=== PATIENT | female | born 1935 | race Caucasian/White ===

== ENCOUNTER 2016-12-01 09:30 | Inpatient (IN) | payer MEDICARE, BC, MEDICAID ==
[~2016-12-01] VITALS: Ht 165.1 cm; Wt 75.7 kg
--- NOTE | ~2016-12-01 | HP ---
ADMIT: 12/01/2016 RM/LOC: [facility] MR#: [id number] [address] [address] [place] [address] Pre-OP History and Physical SEX: F AGE: 81 : 1935 Corrected: 12/01/2016 1318 kamilah DATE OF SERVICE: HISTORY OF PRESENT ILLNESS: Ms. Eng had weeks of visible hardware at the insertion site of her deep brain stimulators as well as the saying that he thinks the batteries are as well. She has not been shaking. She saw Dr. Womack on Thursday and I discussed the case with him. We planned for possible explantation today if he was not able to do it in [employer] over the weekend. The patient is in halfway and is minimally cognizant of what is going on. The history and physical was taken from the chart and from the and daughter. I had seen the patient previously for internal pulse generator exchanges. PAST MEDICAL HISTORY: Parkinson disease, urinary incontinence, subcorneal , salivary secretion issue, shortness of breath, constipation, GERD, dementia, major depression, cervicalgia, stress incontinence, hyperlipidemia, hypothyroidism, adult failure to thrive, psoriasis, and prior urinary tract infections. The patient is a DNR/DNI. MEDICATIONS: Medication reconciliation was sent over, she is not on any anticoagulants. She does not appear to be on medications that would be contraindicated prior to removal of this infected hardware. SOCIAL HISTORY: Lives in a halfway. FAMILY HISTORY: None pertinent. REVIEW OF SYSTEMS: Unobtainable. PHYSICAL EXAM: VITAL SIGNS: Reviewed in Short Stay Surgery in the room with the patient. She is an otherwise unhealthy, older than her stated age appearing woman with erythema. It is a little bit difficult to tell exactly what we are looking at the top of her skull. I was told by Dr. Womack it looked like maybe some wires were coming out, but actually it looks like maybe the set caps have dislodged. The entire area looks mildly purulent and chronically infected. She has internal pulse generators on each side, left and right. She does move her hands on command. She does not speak, keeps her eyes closed. She is somnolent the entire time. She has some volitional movement. She has contractures in her legs and feet. A gastrostomy tube is present. 2+ pulses. Soft respiratory excursions. ASSESSMENT AND PLAN: Ms. Eng is a very pleasant woman with what appears to be eroded through infected hardware in a long-standing deep brain stimulator. This will need to be explanted, probably both systems. After discussing with Dr. Womack, it sounded like may be we could save the right ADMIT: 12/01/2016 RM/LOC: [facility] MR#: [id number] [address] [place] [id number] [place] [address] Pre-OP History and Physical SEX: F AGE: 81 : 1935 system, but I no longer think that is possible. At this point, we will explant both systems. I have discussed the risks, benefits, and alternatives with her family with risks including but not limited to [place], DVT, PE, pneumonia, , loss of bowel, bladder, sexual function, CSF leak, brain abscess, damage to the brain, retained pieces, worsening Parkinson disease as well as others. They stipulate that she has a DNR and would not want resuscitation should her heart stop, although it would be okay for intubation in a compassionate manner during surgery for comfort. We will obtain CT scan and some x-rays as well as some laboratory analysis and bring her back to the OR when ready. We will plan for cultures and Infectious Disease consult. Ravi Powell MD/ yoni JOB #: [id number] CC: Ravi Powell, Attending Physician Sharita Lemon, Family Physician Corrected: 12/01/2016 1318 kamilah
--- NOTE | ~2016-12-01 | DS ---
ADMIT: 12/01/2016 RM/LOC: [address] [facility] MR#: [id number] 26[address] [facility] [address] [place], [place] [address] [place] [address] General Discharge Summary SEX: F AGE: 81 : 1935 CORRECTED: 01/06/2017 0641 DJ ADMISSION DATE: 12/01/2016 DISCHARGE DATE: 12/04/2016 SERVICE: Neurosurgery. REASON FOR ADMISSION: Eroded through infected DBS hardware. CONSULTS: Marietta Conteh MD with Infectious Disease. PROCEDURE: Removal of deep brain stimulator system and bilateral internal pulse generators. HOSPITAL COURSE: Ms. Eng is a very pleasant, 81-year-old female, who was in to see Dr. Womack in [place] on Thursday with exposed DBS hardware. The plan was to do explantation of hardware on the day of admission if Dr. Womack was not able to do it over the weekend. She was taken to the OR, and her deep brain stimulator system was removed bilaterally. The incision to her head was approximated as much as possible, and a wound VAC was placed. She tolerated the procedure very well. Postoperatively, she was taken to the Med/Surg floor for monitoring and care. Postop day #1, she would awaken and open her eyes. She was nonverbal. She was afebrile, and her vital signs were stable, she was contractured in her arms, hands, legs, and feet. Her bilateral chest incisions were clean, dry, and intact. Her head incision was erythematous, and her wound VAC was intact. Dr. Conteh was consulted for assistance with antibiotics. Her tube feedings were resumed. Postop day #2, she would open her eyes, she was afebrile, her vital signs were stable. The incisions to her bilateral chest remained clean, dry, and intact. Her wound VAC to her head was patent. Her face was a little red today. Her wound cultures came back with Staph aureus with sensitivity pending. Postop day #3, she was awake and alert. She was nonverbal. She was afebrile, and her vital signs were stable. Her extremities remained contracture. The wound VAC to her head was intact with decreased erythema to her scalp. Her bilateral chest incisions were clean, dry, and intact. Her urine culture was positive for Proteus mirabilis. She was stable and deemed safe and appropriate for transfer back to [facility]. DISCHARGE CONDITION: Good. MEDICATIONS: 1. Carbidopa 25/100, 2 tabs t.i.d. 2. Loratadine 10 mg syrup daily. 3. Fentanyl patch 50 mcg, change every 72 hours. 4. Potassium 20 mEq daily. 5. Prilosec 40 mg daily. 6. Requip 1 mg t.i.d. 7. Synthroid 75 mcg daily. 8. UTI stat liquid 30 mg b.i.d. ADMIT: 12/01/2016 RM/LOC: [address] [facility] MR#: [id number] [facility] [address] [address] [place] [address] General Discharge Summary SEX: F AGE: 81 : 1935 9. Morphine sulfate 10 mg/5 mL, give 1 mL q.4 hours p.r.n. 10.Morphine sulfate 10 mg/5 mL, give 2 mL q.4 hours p.r.n. 11.Nasal spray solution 2 sprays q.1 hour p.r.n. 12.[place] 10/325, 1 p.o. q.4 hours p.r.n. 13.Nystatin powder b.i.d. p.r.n. 14.Oxybutynin chloride syrup 5 mL t.i.d. 15.Albuterol sulfate neb solution q.4 hours p.r.n. 16.Atropine sulfate 2 drops q.4 hours p.r.n. 17.Dulcolax suppository 1 suppository daily p.r.n. 18.Sinemet tab 25/100, 1.5 tabs t.i.d. 19.Skin cleanser liquid daily p.r.n. 20.Tylenol 325 mg q.6 hours p.r.n. 21.Milk of magnesia 30 mL daily p.r.n. 22.Ceftriaxone IV 2 g every 12 hours until 12/11. 23.Oxacillin IV continuous 12 g a day, start 12/12/2016 until 12/28/2016. DISCHARGE INSTRUCTIONS: Per Dr. Powell, she can have a diet per nutrition tube feeding recommendations. She may shower, she should not take any tub baths, she should not get her head dressing wet. She will follow up with wound care with the wound VAC. She is to have an appointment made with Dr. Mervin Matson in [place] for her scalp wound, he is a plastic surgeon. She is to continue being a DNR/DNI. She will call with any questions or concerns including neurological worsening, signs or symptoms of infection, or any other issues. FOLLOWUP: She will follow up in clinic with Dr. Powell in 2 weeks. Total [id number] time for the discharge planning and care coordination was 30 minutes. Ying Whitmore APRN / Ravi Powell MD / yoni JOB #: [id number] CC: Ravi Powell MD, Attending Physician Sharita Lemon, Family Physician CORRECTED: 01/06/2017 0641 [place]
--- NOTE | 2016-12-03 11:52 | CO ---
ADMIT: 12/01/2016 RM/LOC: 530 [facility] MR#: [id number] [address] [facility] [address] [place] [id number] [place] [address] Consultation SEX: F AGE: 81 : 1935 DATE OF CONSULTATION: 12/02/2016 ATTENDING PHYSICIAN: Ravi Powell CONSULTING PHYSICIAN: Marietta Conteh MD REASON FOR CONSULT: Antibiotic management. Thank you, Dr. Powell, for the consult and involving me in this patient's care. HISTORY OF PRESENT ILLNESS: Ms. Eng is an 81-year-old woman with history of Parkinson's disease, who has had deep brain stimulator placed in the past. She had weeks of visible hardware at the incision site with some purulent drainage. She had seen Dr. Womack and the plan was for explantation. Hence, she was admitted yesterday and underwent explantation of individual deep brain stimulator electrodes as well as internal pulse generator site on both sides. There was significant amount of purulent drainage noted in the OR. Cultures are growing polymicrobial malgorzata and identification is pending at this time. The patient is nonverbal and it is unable to obtain any history from her. PAST MEDICAL HISTORY: 1. Parkinson's disease. 2. Urinary incontinence. 3. Constipation. 4. GERD. 5. Dementia. 6. Major depression. 7. Stress incontinence. 8. Cervicalgia. 9. Hyperlipidemia. 10.Hypothyroidism. 11.Failure to thrive. 12.Psoriasis. 13.History of UTI. SOCIAL HISTORY: She lives in a prison. FAMILY HISTORY: Unable to obtain as patient is nonverbal. REVIEW OF SYSTEMS: Unable to obtain as patient is nonverbal. ALLERGIES: NO KNOWN DRUG ALLERGIES. CURRENT MEDICATIONS: 1. Claritin. 2. Colace. 3. Milk of magnesia. 4. Protonix. ADMIT: 12/01/2016 RM/LOC: 530 [facility] MR#: [id number] [address] [facility] [address] [place], [place] [address] [place] [address] Consultation SEX: F AGE: 81 : 1935 5. Requip. 6. Senokot. 7. Sinemet. 8. Synthroid. 9. Maxipime 2 g every 12 hours. 10.Vancomycin 1 g every 12 hours. PHYSICAL EXAMINATION: VITAL SIGNS: Current temperature 98.2, heart rate 93, respirations 20, blood pressure 114/51, 92% on room air. GENERAL: No acute distress. HEENT: There is a wound VAC present on her scalp and mild surrounding erythema noted. LYMPH: No palpable anterior/posterior cervical or supraclavicular lymphadenopathy. CHEST: Decreased breath sounds bilaterally. No wheezes, rales, or rhonchi. CARDIOVASCULAR: S1 and S2 heard. Regular rate and rhythm. ABDOMEN: Soft, nontender. MUSCULOSKELETAL: There are contractures present in her foot. NEURO: Nonverbal, non-responding to verbal commands. LABORATORY DATA: Reviewed, per HPI. A CBC today shows white count of 11.5, and platelets of 209. Urinalysis showed 108 wbc's, and culture is pending. ASSESSMENT AND PLAN: 1. 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 The culture is growing multiple organisms at this time. Continue IV vancomycin and I will stop the cefepime. I will start her on Zosyn 3.375 g every 8 hours to cover for anaerobes as well given the culture results. We will narrow antibiotics after cultures are finalized. We will also check blood cultures and add on urine culture. 2. Urinary tract infection. Continue antibiotics. 3. Parkinson's disease. 4. Depression. 5. Urinary incontinence. Thank you for the consult and I will continue to follow the patient. Marietta Conteh MD/ yoni JOB #: [id number] CC: Ravi Powell, Attending Physician Sharita Lemon, Family Physician
--- NOTE | 2016-12-03 14:22 | OR ---
ADMIT: 12/01/2016 RM/LOC: 530 [facility] MR#: [id number] [address] [address] [place] [facility] [place] [address] Operative/Delivery Room Report SEX: F AGE: 81 : 1935 SURGERY DATE: 12/01/2016 SURGEON: Ravi Powell MD BULL FLOAT FINISHER: Ying Whitmore APRN. PREOPERATIVE DIAGNOSIS: Large erythematous and inflamed area at the vertex of the scalp involving bilateral deep brain stimulator insertion site with erosion of tissue and wires sticking out with purulent appearance. POSTOPERATIVE DIAGNOSIS: Large erythematous and inflamed area at the vertex of the scalp involving bilateral deep brain stimulator insertion site with erosion of tissue and wires sticking out with purulent appearance. PROCEDURES: 1. Explantation of 2 separate and individual deep brain stimulator electrodes and internal pulse generators, one complete system on the left, one complete system on the right. 2. Complex closure of T-incision 9 cm x 8 cm with eroded portion over top of the prior wenceslao hole craniotomy with 2 cm x 3 cm remaining defect. DESCRIPTION OF PROCEDURE: After gaining informed consent from her and daughter, she was taken to the operative theater and placed under general anesthesia. Time-out was utilized to ascertain the correct site and side of surgery as well as other pertinent patient historical information. Counts were obtained in the beginning and end of the case with no change betwixt the two. Antibiotics were given within 1 hour of incision. Utilizing separate instrument setup, sterilely the incisions were opened over top of the internal pulse generator, and these were freed up and removed from the pocket. The attention was then turned to the infected component and incision over top of the left side was opened with question whether the right side was going to be involved. It is clearly evident from the beginning that the wired areas around were both involved, and at this time, this was converted to a T-shaped incision as her scalp was taut and had no laxity. I evaluated this for possible Z-plasty, but with the situation at the site of the defect, it was clear that there was not going to be much option other than vacuum-assisted closure at the center portion with plastics evaluation at a later date. At this point, the T-incision was fashioned utilizing the drill very cautiously as well as other instruments, the pieces of the plastic retainer were removed, and the deep brain electrodes were removed from within the brain itself. These wenceslao holes were nearly completely re-ossified save for the very tiny area around the electrode. This area was waxed in with bone wax. The skull did not appear to be unhealthy or clearly infected, although the presumption would be that there is an osteomyelitic component of this. Once both of these were explanted, the lead was cut and then the extension wire was pulled down through the pockets in the chest, and the leads were removed from the field with the internal pulse generators. Just prior to doing this, swabs were obtained for culture and sensitivity. At this point, ADMIT: 12/01/2016 RM/LOC: 530 [facility] MR#: [id number] [address] [place] [id number] [place] [address] Operative/Delivery Room Report SEX: F AGE: 81 : 1935 everything had been explanted and attention was turned to closure. The coronal incision was 9 cm in length. The sagittal incision was 8 cm. I attempted to align these in a way and to undermine some of the galea off the skull to allow attempted closure, but even despite freeing up the significant amount, it was clear that this wound was not going to reapproximate primarily. At this point, horizontal mattress 3-0 nylon were used in the edges of the Ts as well as bring together what I could from the central portion after trimming back some of the disease and necrotic-appearing tissue. This left the 9 cm x 8 cm incisions reasonably well closed with the exception of the 2 cm x 3 cm area without tissue. The incisions in the chest were closed with simple inverted interrupted 2-0 Vicryl and simple running 3-0 nylon. Ms. Whitmore assisted with suction, retraction, and closure at the end of the case. COMPLICATIONS: None. ESTIMATED BLOOD LOSS: Charted. SPECIMEN: IPG. Ravi Powell MD/ yoni JOB #: [id number] CC: Ravi Powell, Attending Physician Sharita Lemon, Family Physician
[2016-12-05] MEDS ORDERED: CARBIDOPA-LEVO1 EAC1 GT (13:34)
[2016-12-05] MEDS ORDERED: LORATADINE5 MG/5 M1 GT (13:35)
[2016-12-05] MEDS ORDERED: DURAGESIC DPS100 MCG TD (13:36)
[2016-12-05] MEDS ORDERED: POTASSIUM20 MEQ/15 GT (13:37)
[2016-12-05] MEDS ORDERED: SYNTHROID75 MCG GT (13:37)
[2016-12-05] MEDS ORDERED: REQUIP1 MG GT (13:37)
[2016-12-05] MEDS ORDERED: PRILOSEC DPS20 MG GT (13:37)
[2016-12-05] MEDS ORDERED: UTI-STAT L3875 MG/30 GT (13:38)
[2016-12-05] MEDS ORDERED: MORPHINE GT (13:39)
[2016-12-05] MEDS ORDERED: AFRIN15 M1 NS (13:40)
[2016-12-05] MEDS ORDERED: NORCO 10-325 T1 EACH GT (13:42)
[2016-12-05] MEDS ORDERED: OXYBUTYNIN5 MG/5 ML GT (13:45)
[2016-12-05] MEDS ORDERED: NYSTATIN1 EAC3 TP (13:45)
[2016-12-05] MEDS ORDERED: PROVENTIL2.5 MG/3 M IH (13:46)
[2016-12-05] MEDS ORDERED: ISOPTO ATROPINE15 ML SL (13:47)
[2016-12-05] MEDS ORDERED: DULCOLAX-DPS10 MG PR (15:05)
[2016-12-05] MEDS ORDERED: SINEMET 25/1001 TAB GT (15:05)
[2016-12-05] MEDS ORDERED: [UNRECOGNIZED DRUG - OTHER] TP (15:06)
[2016-12-05] MEDS ORDERED: MILK OF MAGNESI10 ML GT (15:06)
[2016-12-05] MEDS ORDERED: TYLENOL DPS325 MG GT (15:06)
[2016-12-05] MEDS ORDERED: TYLENOL-DP325 MG/10. GT (15:10)
[2016-12-05] MEDS ORDERED: COLACE-DPS100 MG GT (15:12)
[2016-12-05] MEDS ORDERED: DITROPAN SY5 MG/5 ML GT (15:14)
[2016-12-05] MEDS ORDERED: CEFTRIAXONE2 GM IV (15:20)
[2016-12-05] MEDS ORDERED: OXACILLIN SODIUM2 GM IV (15:21)
== END 2016-12-04 12:20 | DRG 26 ==
LOC: SSS 09:30 → 5MS 13:00
PROVIDERS: ADMIT Neurological Surgery
DX: T85.731A Infection and inflammatory reaction due to implanted electronic neurostimulator of brain, electrode (lead), initial encounter (principal); T85.190A Other mechanical complication of implanted electronic neurostimulator of brain electrode (lead), initial encounter; G20 Parkinson's disease; M86.8X8 Other osteomyelitis, other site; T85.123A Displacement of implanted electronic neurostimulator, generator, initial encounter; N39.0 Urinary tract infection, site not specified; B96.4 Proteus (mirabilis) (morganii) as the cause of diseases classified elsewhere; B95.61 Methicillin susceptible Staphylococcus aureus infection as the cause of diseases classified elsewhere; R32 Unspecified urinary incontinence; K59.00 Constipation, unspecified; K21.9 Gastro-esophageal reflux disease without esophagitis; E03.9 Hypothyroidism, unspecified; M24.575 Contracture, left foot; M24.574 Contracture, right foot; F02.80 Dementia in other diseases classified elsewhere, unspecified severity, without behavioral disturbance, psychotic disturbance, mood disturbance, and anxiety; N39.3 Stress incontinence (female) (male); F32.9 Major depressive disorder, single episode, unspecified; Z87.440 Personal history of urinary (tract) infections; Z93.1 Gastrostomy status; Z66 Do not resuscitate